=== PATIENT | male | born 1995 | race Caucasian/White ===

== ENCOUNTER 2020-10-30 21:08 | Emergency (ER) | payer BC ==
[2020-10-30] MEDS ORDERED: Ketorolac 15 MG/ML SDV IM ONE (21:37)
--- NOTE | 2020-10-30 21:40 | EDM.PDOC ---
ED HPI GENERAL MEDICAL PROBLEM - General Chief Complaint: General Stated Complaint: COUGH, VOMITTING, HEADACHE Time Seen by Provider: 10/30/20 21:26 Source of Information: Reports: Patient History Limitations: Reports: No Limitations - History of Present Illness INITIAL COMMENTS - FREE TEXT/NARRATIVE: Patient is a 25-year-old male presents today for symptoms of productive cough body ache and fatigue. Patient states that he went to a walk-in clinic on Wednesday and had a Covid test which was negative. He states that since then he has felt worse he has had a more productive cough and is feeling very tired. He denies any chest pain abdominal pain he still tolerating p.o. Has not taken any Motrin Tylenol [id number] medications to treat his symptoms at home. generalized Pain Score (Numeric/FACES): 8 - Related Data Allergies Allergy/AdvReac Type Severity Reaction Status Date / Time No Known Allergies Allergy Verified 10/30/20 21:32 Home Meds: Home Meds . [No Known Home Meds] 09/07/15 [History] Past Medical History - Past Health History Medical/Surgical History: Denies Medical/Surgical History ED ROS GENERAL - Review of Systems Review Of Systems: See Below Constitutional: Reports: Fever, Chills, Malaise HEENT: Reports: No Symptoms Respiratory: Reports: Cough Cardiovascular: Reports: No Symptoms Endocrine: Reports: No Symptoms GI/Abdominal: Reports: No Symptoms : Reports: No Symptoms Musculoskeletal: Reports: No Symptoms Skin: Reports: No Symptoms Neurological: Reports: No Symptoms Psychiatric: Reports: No Symptoms Hematologic/Lymphatic: Reports: No Symptoms Immunologic: Reports: No Symptoms ED EXAM, GENERAL - Physical Exam Exam: See Below Exam Limited By: No Limitations General Appearance: Alert, WD/WN, No Apparent Distress Throat/Mouth: Normal Inspection Head: Atraumatic Respiratory/Chest: No Respiratory Distress, Lungs Clear, Normal Breath Sounds Cardiovascular: Normal Peripheral Pulses, Regular Rate, Rhythm GI/Abdominal: Normal Bowel Sounds Extremities: Normal Inspection Neurological: Alert, Oriented, Normal Cognition, Normal Gait Course - Vital Signs Last Recorded V/S: Last Vital Signs Temp 100.2 F 10/30/20 21:32 Pulse 88 10/30/20 21:32 Resp 24 H 10/30/20 21:32 BP 142/79 H 10/30/20 21:32 Pulse Ox 97 10/30/20 21:32 - Orders/Labs/Meds Labs: Laboratory Tests 10/30/20 10/30/20 Range/Units 22:02 22:02 WBC 2.87 L (4.0-11.0) K/uL RBC 4.50 (4.50-5.90) M/uL Hgb 13.6 (13.0-17.0) g/dL Hct 38.4 (38.0-50.0) % MCV 85.3 (80.0-98.0) fL MCH 30.2 (27.0-32.0) pg MCHC 35.4 (31.0-37.0) g/dL RDW Std Deviation 37.5 (28.0-62.0) fl RDW Coeff of Zaheer 12 (11.0-15.0) % Plt Count 114 L (150-400) K/uL MPV 10.60 (7.40-12.00) fL Neut % (Auto) 47.8 L (48.0-80.0) % Lymph % (Auto) 39.4 (16.0-40.0) % Esmeralda % (Auto) 12.5 (0.0-15.0) % Eos % (Auto) 0.0 (0.0-7.0) % Baso % (Auto) 0.3 (0.0-1.5) % Neut # (Auto) 1.4 (1.4-5.7) K/uL Lymph # (Auto) 1.1 (0.6-2.4) K/uL Esmeralda # (Auto) 0.4 (0.0-0.8) K/uL Eos # (Auto) 0.0 (0.0-0.7) K/uL Baso # (Auto) 0.0 (0.0-0.1) K/uL Nucleated RBC % 0.0 /100WBC Nucleated RBCs # 0 K/uL Sodium 137 (136-148) mmol/L Potassium 4.1 (3.5-5.1) mmol/L Chloride 100 (98-107) mmol/L Carbon Dioxide 26.0 (21.0-32.0) mmol/L BUN 18 (7.0-18.0) mg/dL Creatinine 1.1 (0.8-1.3) mg/dL Est Cr Clr Drug Dosing 100.18 mL/min Estimated GFR (MDRD) > 60.0 ml/min Glucose 104 (74-106) mg/dL Calcium 8.5 (8.5-10.1) mg/dL Total Bilirubin 0.3 (0.2-1.0) mg/dL AST 21 (15-37) IU/L ALT 32 (14-63) IU/L Alkaline Phosphatase 68 (46-116) U/L Total Protein 7.3 (6.4-8.2) g/dL Albumin 3.8 (3.4-5.0) g/dL Globulin 3.5 (2.6-4.0) g/dL Albumin/Globulin Ratio 1.1 (0.9-1.6) Meds: Medications Discontinued Medications Generic Name Dose Route Start Last Admin Trade Name Freq PRN Reason Stop Dose Admin Ketorolac Tromethamine 15 mg 10/30/20 21:37 10/30/20 22:07 Ketorolac 15 Mg/Ml Sdv IM 10/30/20 21:38 15 mg ONETIME ONE Administration - Re-Assessments/Exams Free Text/Narrative Re-Assessment/Exam: 10/30/20 22:44 Patient x-ray reviewed patient labs also reviewed he has a low WBC count and also low neutrophil and platelet count. Has no signs of any bleeding or injuries. Will make patient aware having follow-up with his primary care physician for further possible hematology. Departure - Departure Time of Disposition: 22:44 Disposition: Home, Self-Care 01 Condition: Good Clinical Impression: Acquired thrombocytopenia, Viral illness - Discharge Information *PRESCRIPTION DRUG MONITORING PROGRAM REVIEWED*: Not Applicable *COPY OF PRESCRIPTION DRUG MONITORING REPORT IN PATIENT KAREN: Not Applicable Referrals: PCP,None [Primary Care Provider] - Forms: ED Department Discharge Additional Instructions: The following information is given to patients seen in the emergency department who are being discharged to home. This information is to outline your options for follow-up care. We provide all patients seen in our emergency department with a follow-up referral. The need for follow-up, as well as the timing and circumstances, are variable depending upon the specifics of your emergency department visit. If you don't have a primary care physician on staff, we will provide you with a referral. We always advise you to contact your personal physician following an emergency department visit to inform them of the circumstance of the visit and for follow-up with them and/or the need for any referrals to a consulting specialist. The emergency department will also refer you to a specialist when appropriate. This referral assures that you have the opportunity for follow-up care with a specialist. All of these measure are taken in an effort to provide you with optimal care, which includes your follow-up. Under all circumstances we always encourage you to contact your private physician who remains a resource for coordinating your care. When calling for follow-up care, please make the office aware that this follow-up is from your recent emergency room visit. If for any reason you are refused follow-up, please contact the [facility] Emergency Department at and asked to speak to the emergency department charge nurse. Please follow up with your primary care physician. If you do not have a primary care physician, see below: [facility] [address] [place] [id number] My [facility] [address] [place] [id number] He was seen today for symptoms of cough and body aches. You most likely have a virus that we recommend you continue to try [id number] medication for. We want to make you aware that you do have a low white blood cell count and low platelets count this may be related to the virus but we still need to follow-up to primary care physician for further care and work-up you may need referral to platform stapler. Sepsis Event Note (ED) - Focused Exam Vital Signs: Vital Signs Temp Pulse Resp BP Pulse Ox 10/30/20 21:32 100.2 F 88 24 H 142/79 H 97 - Assessment/Plan Plan: Patient is a 25-year-old male presents today for cough body aches fever chills. Patient had a negative Covid test on Wednesday. Will obtain x-ray labs provide Toradol and reassess.
--- NOTE | 2020-10-30 22:17 | CR ---
INDICATION: Productive cough TECHNIQUE: Chest radiograph 1 view COMPARISON: None FINDINGS: Mediastinum: The mediastinum is normal in appearance. The heart silhouette is normal in size and morphology. Lung: Both lungs are unremarkable in appearance. No sign of pleural effusion seen. No pneumothorax is identified. Bone and Soft tissue: Unremarkable for age. IMPRESSION: 1. No acute cardiopulmonary disease is seen. Dictated by: Luis Sigala MD @ 10/30/2020 22:17:06 (Electronically Signed)
[2020-10-30 22:42] LABS: BLOOD UREA NITROGEN,BUN 18 mg/dL (7.0-18.0); CHLORIDE,CL 100 mmol/L (98-107); GLUCOSE RANDOM 104 mg/dL (74-106); POTASSIUM,K 4.1 mmol/L (3.5-5.1); SODIUM,NA 137 mmol/L (136-148)
[2020-10-30 23:24] VITALS: BP 132/55; PULSE 84
== END 2020-10-30 22:50 | disposition home or self-care (01) ==
LOC: MW.ED 21:08
DX: B34.9 Viral infection, unspecified (principal); D69.6 Thrombocytopenia, unspecified
CPT/HCPCS: 36415; 71045; 80053; 85025; 96372; 99283; J1885

== ENCOUNTER 2022-07-15 20:42 | Emergency (ER) | payer OTHER, BC ==
[2022-07-15] MEDS ORDERED: Ibuprofen 600 MG Tab PO ONE (20:48)
[2022-07-15 20:51] VITALS: PULSE 72
[2022-07-15] MEDS ORDERED: Acetaminophen/oxyCODONE 325-5 MG Tab PO ONE (21:20)
[2022-07-15 21:53] VITALS: BP 107/52
== END 2022-07-15 21:50 | disposition home or self-care (01) ==
LOC: MW.ED 20:42
DX: S80.211A Abrasion, right knee, initial encounter (principal); S30.810A Abrasion of lower back and pelvis, initial encounter; V86.56XA Driver of dirt bike or motor/cross bike injured in nontraffic accident, initial encounter; Y92.410 Unspecified street and highway as the place of occurrence of the external cause
CPT/HCPCS: 73562; 99283; A9270

== ENCOUNTER 2023-04-25 17:06 | Emergency (ER) | payer BC ==
[2023-04-25 17:27] VITALS: BP 132/99; PULSE 69
[2023-04-25] MEDS: Polymyxin B/Trimethoprim 10 ML Bottle EYERT ONE (17:51)
[2023-04-25] MEDS: Ofloxacin 0.3% Ophth Soln 5 ML Bottle EYEBOTH ONE (17:54)
== END 2023-04-25 17:56 | disposition home or self-care (01) ==
LOC: MW.ED 17:06
DX: H10.9 Unspecified conjunctivitis (principal)
CPT/HCPCS: 99283